=== PATIENT | female | born 1955 | race Caucasian/White ===

== ENCOUNTER → 2018-03-05 08:37 | Outpatient (CLI) | payer BC ==
[2016-04-18 01:06] VITALS: BMI 18.3
[~2018-03-05 08:37] MED LIST: ANORO ELLIPTA1 EACH INH; ARNUITY ELLIPTA; PREDNISONE10 MG PO; PRINIVIL20 MG PO; PROAIR HFA8.5 GM INH; RESTORIL15 MG PO; SINGULAIR10 MG PO; TAZTIA XT360 MG PO
== END | disposition home or self-care (01) ==
LOC: D.RT 08:37
DX: J44.9 Chronic obstructive pulmonary disease, unspecified (principal)

== ENCOUNTER 2018-04-12 20:34 | Inpatient (IN) | payer BC ==
[~2018-04-12] VITALS: Ht 152.4 cm; Wt 53.5 kg
--- NOTE | ~2018-04-12 | MORECARE ---
CASE MANAGEMENT DISCHARGE SUMMARY PATIENT: MITCHELL BURT UNIT: [id number] ADM DATE: 04/12/18 AGE: 62 : 54 SEX: F ROOM/BED: D.2226 AUTHOR: JOSÉ ANTONIO AUGUST PHYSICIAN: REFERRING PHYSICIAN: DEB SANCHEZ MD DATE OF SERVICE: 04/16/18 Discharge Plan Patient Name: MITCHELL BURT Facility: [facility]:[place] : 1955 Planned Disposition: Home Anticipated Discharge Date: Discharge Date: Expected LOS: Initial Reviewer: [email or web address] Initial Review Date: 04/15/2018 Generated: 04/16/18 4:06 pm Comments DCP- Discharge Planning Updated by [email or web address]: Shelby Mccarty on 04/16/18 2:[address] Received order for discharge. States her friend will be driving her home. Her potassium level is low and she needs to receive potassium prior to discharge. She states Dr. Sanchez thinks I'll do better at home because I'll walk more and be back on my routine medications. She is on 1L [place] oxygen, walk test ordered and I called RT and spoke to Jason. She declines home health, states she is going to have house calls see her. CM will continue to follow and assist with discharge planning/needs. DCP- Discharge Planning Updated by [email or web address]: Shelby Mccarty on 04/15/18 9:[address] Patient Name: MITCHELL BURT Admission Status: ER Accout number: [id number] Admission Date: 04-12-2018 : 1955 Admission Diagnosis: Attending: DEB SANCHEZ Current LOS: 3 Anticipated DC Date: Planned Disposition: Home Primary Insurance: [place] O Discharge Planning Comments: CM met with patient to discuss discharge planning, she is alone in the room. States she lives alone. States she is independent with all ADL's and IADL's. States she has a friend, Shital, that will take her home on discharge and assist with her care. She declines need for home health at this time. CM will continue to follow and assist with discharge planning/needs. Mastic Sprayer: Shelby Mccarty DCPIA - Discharge Planning Initial Assessment Updated by [email or web address]: Shelby Mccarty on 04/15/18 10:06 am * Is the patient Alert and Oriented? Yes * How many steps to enter\exit or inside your home? 0/flight * PCP Dr. Ribera * Pharmacy [facility] * Preadmission Environment Home Alone * ADLs Independent * Equipment Nebulizer * List name and contact numbers for known caregivers / representatives who currently or will assist patient after discharge: Shital Elliott [facility] - [phone] * Verbal permission to speak to the caregivers and representatives has been obtained from the patient. Yes * Community resources currently utilized None * Additional services required to return to the preadmission environment? No * Can the patient safely return to the preadmission environment? Yes * Has this patient been hospitalized within the prior 30 days at any hospital? No Last DP export: 04/15/18 9:10 Patient Name: MITCHELL BURT Page 83692 at 1506 All edits/amendments must be made on the electronic document DICTATION DATE: 04/16/181505 GIANT TIRE REPAIRER: IVY 04/16/18 150 RPT#: [id number] DC DATE: STATUS: ADM IN [facility] [address] [place] [address] END OF REPORT
--- NOTE | ~2018-04-12 | MORECARE ---
CASE MANAGEMENT DISCHARGE SUMMARY PATIENT: MITCHELL BURT UNIT: [id number] ADM DATE: 04/12/18 AGE: 62 : 53 SEX: F ROOM/BED: D.2226 AUTHOR: MATA,DOC PHYSICIAN: REFERRING PHYSICIAN: DEB SANCHEZ MD DATE OF SERVICE: 04/15/18 Discharge Plan Patient Name: MITCHELL BURT Facility: [facility]:[place] : 1955 Planned Disposition: Home Anticipated Discharge Date: Discharge Date: Expected LOS: Initial Reviewer: [email or web address] Initial Review Date: 04/15/2018 Generated: 04/15/18 11:10 am Comments DCP- Discharge Planning Updated by [email or web address]: Shelby Mccarty on 04/15/18 9:[address] Patient Name: MITCHELL BURT Admission Status: ER Accout number: [id number] Admission Date: 04-12-2018 : 1955 Admission Diagnosis: Attending: DEB SANCHEZ Current LOS: 3 Anticipated DC Date: Planned Disposition: Home Primary Insurance: [employer] O Discharge Planning Comments: CM met with patient to discuss discharge planning, she is alone in the room. States she lives alone. States she is independent with all ADL's and IADL's. States she has a friend, Shital, that will take her home on discharge and assist with her care. She declines need for home health at this time. CM will continue to follow and assist with discharge planning/needs. Business Segment Manager: Shelby Mccarty DCPIA - Discharge Planning Initial Assessment Updated by [email or web address]: Shelby Mccarty on 04/15/18 10:06 am * Is the patient Alert and Oriented? Yes * How many steps to enter\exit or inside your home? 0/flight * PCP Dr. Ribera * Pharmacy [facility] * Preadmission Environment Home Alone * ADLs Independent * Equipment Nebulizer * List name and contact numbers for known caregivers / representatives who currently or will assist patient after discharge: Shital Elliott - friend - [phone] * Verbal permission to speak to the caregivers and representatives has been obtained from the patient. Yes * Community resources currently utilized None * Additional services required to return to the preadmission environment? No * Can the patient safely return to the preadmission environment? Yes * Has this patient been hospitalized within the prior 30 days at any hospital? No Last DP export: 04/15/18 9:03 Patient Name: MITCHELL BURT Page [id number] at 1010 All edits/amendments must be made on the electronic document DICTATION DATE: 04/15/18 1010 DOOR LINER HELPER: IVY 04/15/18 1010 RPT#: [id number] DC DATE: STATUS: ADM IN [facility] [address] [place] [address] END OF REPORT
--- NOTE | ~2018-04-12 | DS ---
PATIENT:MITCHELL BURT :53 MEDICAL RECORD: [id number] DISCHARGE SUMMARY ADMISSION DATE: 04/12/18 DISCHARGE DATE: 04/18/18 PRINCIPAL DIAGNOSIS: Recurrent cecal volvulus. OTHER DIAGNOSES: Asthma, hypertension, constipation, history of , history of appendectomy, and history of neck surgeries times 3. PRINCIPAL PROCEDURE: Open right colectomy. HOSPITAL COURSE: The patient was admitted through the Emergency Room. She underwent the above operative procedure. Her pain was controlled postoperatively. Bowel function returned. Her diet was advanced. She is being dismissed home on hydrocodone as well as Colace. I will see her in the office in 2-3 weeks. The discharge instructions were given to the patient verbally by me. TRANSINT:[id number] Voice Confirmation ID: [id number] DOCUMENT ID: [id number] DEB SANCHEZ MD CC: DANTE DAY [id number] DICTATION DATE: 04/16/18 1354 RAG BOILER: 04/17/18 1122 DIS IN 04/18/18 [address] [id number] [place] [address]
--- NOTE | ~2018-04-12 | MORECARE ---
CASE MANAGEMENT DISCHARGE SUMMARY PATIENT: MITCHELL BURT UNIT: [id number] ADM DATE: 04/12/18 AGE: 62 : 54 SEX: F ROOM/BED: D.2226 AUTHOR: JOSÉ ANTONIO AUGUST PHYSICIAN: REFERRING PHYSICIAN: DEB SANCHEZ MD DATE OF SERVICE: 04/17/18 Discharge Plan Patient Name: MITCHELL BURT Facility: [facility]:[place] : 1955 Planned Disposition: Home Anticipated Discharge Date: Discharge Date: Expected LOS: Initial Reviewer: [id number] Initial Review Date: 04/15/2018 Generated: 04/17/18 8:02 pm Comments DCP- Discharge Planning Updated by [id number]: Nadia Dougherty on 04/17/18 5:[address] Patient Name: MITCHELL BURT Admission Status: ER Accout number: [id number] Admission Date: 04-12-2018 : 1955 Admission Diagnosis:VOLVULUS Attending: DEB SANCHEZ Current LOS: 5 Anticipated DC Date: Planned Disposition: Home Primary Insurance: [employer] O Discharge Planning Comments: CM FAXED DOCUMENTS TO [facility] AT FAX [phone]. I CALLED [facility] AT [phone] TO GET PATIENT SET UP WITH HOME O2 AND PORTABLE 02. [facility] IS AWARE THE PATIENT MAY DISCHARGE TOMORROW. RN OR CM MAY NEED TO FOLLOW UP WITH [facility] TOMORROW MORNING TO CHECK THE STATUS OF HER OXYGEN ORDER. CM WILL FOLLOW AND ASSIST NEEDED WITH DC PLANNING/NEEDS. Bicycle Courier: Nadia Dougherty DCP- Discharge Planning Updated by [email or web address]: Shelbymayi Mccarty on 04/16/18 2:[address] Received order for discharge. States her friend will be driving her home. Her potassium level is low and she needs to receive potassium prior to discharge. She states Dr. Sanchez thinks I'll do better at home because I'll walk more and be back on my routine medications. She is on 1L [place] oxygen, walk test ordered and I called RT and spoke to Jason. She declines home health, states she is going to have house calls see her. CM will continue to follow and assist with discharge planning/needs. DCP- Discharge Planning Updated by [email or web address]: Shelby Mccarty on 04/15/18 9:[address] Patient Name: MITCHELL BURT Admission Status: ER Accout number: [id number] Admission Date: 04-12-2018 : 1955 Admission Diagnosis: Attending: DEB SANCHEZ Current LOS: 3 Anticipated DC Date: Planned Disposition: Home [facility] [employer] [facility] Discharge Planning Comments: CM met with patient to discuss discharge planning, she is alone in the room. States she lives alone. States she is independent with all ADL's and IADL's. States she has a friend, Shital, that will take her home on discharge and assist with her care. She declines need for home health at this time. CM will continue to follow and assist with discharge planning/needs. Bicycle Courier: Shelby Mccarty DCPIA - Discharge Planning Initial Assessment Updated by [email or web address]: Shelby Mccarty on 04/15/18 10:06 am * Is the patient Alert and Oriented? Yes * How many steps to enter\exit or inside your home? 0/flight * PCP Dr. Ribera * Pharmacy [facility] * Preadmission Environment Home Alone * ADLs Independent * Equipment Nebulizer * List name and contact numbers for known caregivers / representatives who currently or will assist patient after discharge: Shital Elliott - friend - [phone] * Verbal permission to speak to the caregivers and representatives has been obtained from the patient. Yes * Community resources currently utilized None * Additional services required to return to the preadmission environment? No * Can the patient safely return to the preadmission environment? Yes * Has this patient been hospitalized within the prior 30 days at any hospital? No Last DP export: 04/17/18 5:50 Patient Name: MITCHELL BURT Page 29621 at 1902 All edits/amendments must be made on the electronic document DICTATION DATE: 04/17/181901 PSYCHOTHERAPIST SOCIAL WORKER: IVY 04/17/181901 RPT#: [id number] DC DATE: STATUS: ADM IN [facility] [address] [place] [address] END OF REPORT
--- NOTE | ~2018-04-12 | MORECARE ---
CASE MANAGEMENT DISCHARGE SUMMARY PATIENT: MITCHELL BURT UNIT: [id number] ADM DATE: 04/12/18 AGE: 62 : 53 SEX: F ROOM/BED: D.2226 AUTHOR: JOSÉ ANTONIO AUGUST PHYSICIAN: REFERRING PHYSICIAN: DEB SANCHEZ MD DATE OF SERVICE: 04/15/18 Discharge Plan Patient Name: MITCHELL BURT Facility: [facility]:[place] : 1955 Planned Disposition: Home Anticipated Discharge Date: Discharge Date: Expected LOS: Initial Reviewer: [email or web address] Initial Review Date: 04/15/2018 Generated: 04/15/18 11:03 am Patient Name: MITCHELL BURT Page 79087 at 1003 All edits/amendments must be made on the electronic document DICTATION DATE: 04/15/18 1003 TROLLEY WORKER: IVY 04/15/18 1003 RPT#: [id number] DC DATE: STATUS: ADM IN [facility] [address] [place] [address] END OF REPORT
--- NOTE | ~2018-04-12 | MORECARE ---
CASE MANAGEMENT DISCHARGE SUMMARY PATIENT: MITCHELL BURT UNIT: [id number] ADM DATE: 04/12/18 AGE: 62 : 53 SEX: F ROOM/BED: D.2226 AUTHOR: JOSÉ ANTONIO AUGUST PHYSICIAN: REFERRING PHYSICIAN: DEB SANCHEZ MD DATE OF SERVICE: 04/17/18 Discharge Plan Patient Name: MITCHELL BURT Facility: [facility]:[place] : 1955 Planned Disposition: Home Anticipated Discharge Date: Discharge Date: Expected LOS: Initial Reviewer: [email or web address] Initial Review Date: 04/15/2018 Generated: 04/17/18 7:50 pm Comments DCP- Discharge Planning Updated by [email or web address]: Shelby Mccarty on 04/16/18 2:[address] Received order for discharge. States her friend will be driving her home. Her potassium level is low and she needs to receive potassium prior to discharge. She states Dr. Sanchez thinks I'll do better at home because I'll walk more and be back on my routine medications. She is on 1L [place] oxygen, walk test ordered and I called RT and spoke to Jason. She declines home health, states she is going to have house calls see her. CM will continue to follow and assist with discharge planning/needs. DCP- Discharge Planning Updated by [email or web address]: Shelby Mccarty on 04/15/18 9:[address] Patient Name: MITCHELL BURT Admission Status: ER Accout number: [id number] Admission Date: 04-12-2018 : 1955 Admission Diagnosis: Attending: DEB SANCHEZ Current LOS: 3 Anticipated DC Date: Planned Disposition: Home Primary Insurance: [employer] O Discharge Planning Comments: CM met with patient to discuss discharge planning, she is alone in the room. States she lives alone. States she is independent with all ADL's and IADL's. States she has a friend, Shital, that will take her home on discharge and assist with her care. She declines need for home health at this time. CM will continue to follow and assist with discharge planning/needs. Scrap Shear Operator: Shelby Mccarty DCPIA - Discharge Planning Initial Assessment Updated by [email or web address]: Shelby Mccarty on 04/15/18 10:06 am * Is the patient Alert and Oriented? Yes * How many steps to enter\exit or inside your home? 0/flight * PCP Dr. Ribera * Pharmacy [facility] * Preadmission Environment Home Alone * ADLs Independent * Equipment Nebulizer * List name and contact numbers for known caregivers / representatives who currently or will assist patient after discharge: Shital Elliott [facility] - [phone] * Verbal permission to speak to the caregivers and representatives has been obtained from the patient. Yes * Community resources currently utilized None * Additional services required to return to the preadmission environment? No * Can the patient safely return to the preadmission environment? Yes * Has this patient been hospitalized within the prior 30 days at any hospital? No External Providers External Provider: VINIC[facility]vonne [facility] Contact Date: Service Request Date: Service Type: Resolution: Reviewer: Comments: Last DP export: 04/16/18 2:06 Patient Name: MITCHELL BURT Page 28597 at 1850 All edits/amendments must be made on the electronic document DICTATION DATE: 04/17/181848 SAFETY AND SKILL BASED PAY MANAGER: IVY 04/17/181848 RPT#: [id number] DC DATE: STATUS: ADM IN [facility] [address] [place] [address] END OF REPORT
--- NOTE | ~2018-04-12 | MORECARE ---
CASE MANAGEMENT DISCHARGE SUMMARY PATIENT: MITCHELL BURT UNIT: [id number] ADM DATE: 04/12/18 AGE: 62 : 53 SEX: F ROOM/BED: D.2226 AUTHOR: MATA,DOC PHYSICIAN: REFERRING PHYSICIAN: DEB SANCHEZ MD DATE OF SERVICE: 04/19/18 Discharge Plan Patient Name: MITCHELL BURT Facility: [facility]:[place] : 1955 Planned Disposition: Home Anticipated Discharge Date: Discharge Date: 04/18/2018 Expected LOS: Initial Reviewer: [email or web address] Initial Review Date: 04/15/2018 Generated: 04/19/18 3:46 pm Comments DCP- Discharge Planning Updated by [email or web address]: Evelyn Parker on 04/18/18 4:[address] LATE ENTRY Dang LEANDRO WITH [facility] DELIVERY PORTABLE OXYGEN TO PATIENTS BEDSIDE. HE WILL DELIVER STATIONARY UNIT TO PATIENT'S HOME. DCP- Discharge Planning Updated by [email or web address]: Nadia Dougherty on 04/17/18 6:[address] Patient Name: MITCHELL BURT Admission Status: ER Accout number: [id number] Admission Date: 04-12-2018 : 1955 Admission Diagnosis:VOLVULUS Attending: DEB SANCHEZ Current LOS: 5 Anticipated DC Date: Planned Disposition: Home Primary Insurance: [employer] [facility] Discharge Planning Comments: [facility] AT FAX [phone]. I CALLED [facility] AT [phone] TO GET PATIENT SET UP WITH HOME O2 AND PORTABLE 02. [facility] IS AWARE THE PATIENT MAY DISCHARGE TOMORROW. RN OR CM MAY NEED TO FOLLOW UP WITH [facility] TOMORROW MORNING TO CHECK THE STATUS OF HER OXYGEN ORDER. CM WILL FOLLOW AND ASSIST NEEDED WITH DC PLANNING/NEEDS. Piano Tuner: Nadia Dougherty Appended by Nadia Dougherty on 04/17/2018 19:23 NATURAL RESOURCES TECHNICIAN: SPOKE WITH LEANDRO FROM [facility], HE STATED HE WILL DELIVER PORTABLE O2 TO PATIENTS ROOM TOMORROW AROUND NOON. THEN WILL SET UP HOME O2 FOR HER. DCP- Discharge Planning Updated by [email or web address]: Shelby Mccarty on 04/16/18 2:[address] Received order for discharge. States her friend will be driving her home. Her potassium level is low and she needs to receive potassium prior to discharge. She states Dr. Sanchez thinks I'll do better at home because I'll walk more and be back on my routine medications. She is on 1L [place] oxygen, walk test ordered and I called RT and spoke to Jason. She declines home health, states she is going to have house calls see her. CM will continue to follow and assist with discharge planning/needs. DCP- Discharge Planning Updated by [email or web address]: Shelby Mccarty on 04/15/18 9:[address] Patient Name: MITCHELL BURT Admission Status: ER Accout number: [id number] Admission Date: 04-12-2018 : 1955 Admission Diagnosis: Attending: DEB SANCHEZ Current LOS: 3 Anticipated DC Date: Planned Disposition: Home Primary Insurance: [employer] [facility] Discharge Planning Comments: CM met with patient to discuss discharge planning, she is alone in the room. States she lives alone. States she is independent with all ADL's and IADL's. States she has a friend, Shital, that will take her home on discharge and assist with her care. She declines need for home health at this time. CM will continue to follow and assist with discharge planning/needs. Piano Tuner: Shelby Dormanlela DCPIA - Discharge Planning Initial Assessment Updated by [email or web address]: Shelby Mccarty on 04/15/18 10:06 am * Is the patient Alert and Oriented? Yes * How many steps to enter\exit or inside your home? 0/flight * PCP Dr. Ribera * Pharmacy [facility] on [facility] * Preadmission Environment Home Alone * ADLs Independent * Equipment Nebulizer * List name and contact numbers for known caregivers / representatives who currently or will assist patient after discharge: Shital Elliott - friend - [phone] * Verbal permission to speak to the caregivers and representatives has been obtained from the patient. Yes * Community resources currently utilized None * Additional services required to return to the preadmission environment? No * Can the patient safely return to the preadmission environment? Yes * Has this patient been hospitalized within the prior 30 days at any hospital? No Last DP export: 04/18/18 4:31 Patient Name: MITCHELL BURT Page 99518 at 1446 All edits/amendments must be made on the electronic document DICTATION DATE: 04/19/181444 GANG HEMSTITCHING MACHINE OPERATOR: IVY 04/19/181444 RPT#: [id number] DC DATE:04/18/18 STATUS: DIS IN [facility] [address] [place] [address] END OF REPORT
--- NOTE | ~2018-04-12 | MORECARE ---
CASE MANAGEMENT DISCHARGE SUMMARY PATIENT: MITCHELL BURT UNIT: [id number] ADM DATE: 04/12/18 AGE: 62 : 53 SEX: F ROOM/BED: D.2226 AUTHOR: MATA,DOC PHYSICIAN: REFERRING PHYSICIAN: DEB SANCHEZ MD DATE OF SERVICE: 04/18/18 Discharge Plan Patient Name: MITCHELL BURT Facility: [facility]:[place] : 1955 Planned Disposition: Home Anticipated Discharge Date: Discharge Date: 04/18/2018 Expected LOS: Initial Reviewer: [id number] Initial Review Date: 04/15/2018 Generated: 04/18/18 6:31 pm Comments DCP- Discharge Planning Updated by [email or web address]: Evelyn Parker on 04/18/18 4:[address] LATE ENTRY Dang REEVES WITH [facility] DELIVERY PORTABLE OXYGEN TO PATIENTS BEDSIDE. HE WILL DELIVER STATIONARY UNIT TO PATIENT'S HOME. DCP- Discharge Planning Updated by [email or web address]: Nadia Dougherty on 04/17/18 6:[address] Patient Name: MITCHELL BURT Admission Status: ER Accout number: [id number] Admission Date: 04-12-2018 : 1955 Admission Diagnosis:VOLVULUS Attending: DEB SANCHEZ Current LOS: 5 Anticipated DC Date: Planned Disposition: Home Primary Insurance: [employer] [facility] Discharge Planning Comments: CM FAXED DOCUMENTS TO [facility] AT FAX [phone]. [facility] AT [phone] TO GET PATIENT SET UP WITH HOME O2 AND PORTABLE 02. [facility] MAY DISCHARGE TOMORROW. RN OR CM MAY NEED TO FO[facility] MORN[facility] TO CHECK THE STATUS OF HER OXYGEN ORDER. CM WILL FOLLOW AND ASSIST NEEDED WITH DC PLANNING/NEEDS. Diagram Clerk: Nadia Dougherty Appended by Nadia Dougherty on 04/17/2018 19:23 AIRCRAFT SYSTEMS REPAIRER: SPOKE WITH LEANDRO FROM [facility], HE STATED HE WILL DELIVER PORTABLE O2 TO PATIENTS ROOM TOMORROW AROUND NOON. THEN WILL SET UP HOME O2 FOR HER. DCP- Discharge Planning Updated by [email or web address]: Shelby Mccarty on 04/16/18 2:[address] Received order for discharge. States her friend will be driving her home. Her potassium level is low and she needs to receive potassium prior to discharge. She states Dr. Sanchez thinks I'll do better at home because I'll walk more and be back on my routine medications. She is on 1L [place] oxygen, walk test ordered and I called RT and spoke to Jason. She declines home health, states she is going to have house calls see her. CM will continue to follow and assist with discharge planning/needs. DCP- Discharge Planning Updated by [email or web address]: Shelby Mccarty on 04/15/18 9:[address] Patient Name: MITCHELL BURT Admission Status: ER Accout number: [id number] Admission Date: 04-12-2018 : 1955 Admission Diagnosis: Attending: DEB SANCHEZ Current LOS: 3 Anticipated DC Date: Planned Disposition: Home Primary Insurance: [employer] [facility] Discharge Planning Comments: CM met with patient to discuss discharge planning, she is alone in the room. States she lives alone. States she is independent with all ADL's and IADL's. States she has a friend, Shital, that will take her home on discharge and assist with her care. She declines need for home health at this time. CM will continue to follow and assist with discharge planning/needs. Diagram Clerk: Shelby Dormanlela DCPIA - Discharge Planning Initial Assessment Updated by [email or web address]: Shelby Mccarty on 04/15/18 10:06 am * Is the patient Alert and Oriented? Yes * How many steps to enter\exit or inside your home? 0/flight * PCP Dr. Ribera * Pharmacy [facility] on [facility] * Preadmission Environment Home Alone * ADLs Independent * Equipment Nebulizer * List name and contact numbers for known caregivers / representatives who currently or will assist patient after discharge: Shital Elliott - friend - [phone] * Verbal permission to speak to the caregivers and representatives has been obtained from the patient. Yes * Community resources currently utilized None * Additional services required to return to the preadmission environment? No * Can the patient safely return to the preadmission environment? Yes * Has this patient been hospitalized within the prior 30 days at any hospital? No Last DP export: 04/17/18 6:27 Patient Name: MITCHELL BURT Page 77599 at 1731 All edits/amendments must be made on the electronic document DICTATION DATE: 04/18/181729 FISH RECEIVER: IVY 04/18/181729 RPT#: [id number] DC DATE:04/18/18 STATUS: DIS IN [facility] [address] [place] [address] END OF REPORT
--- NOTE | ~2018-04-12 | CN ---
PATIENT NAME:MITCHELL BURT MEDICAL RECORD: [id number] : 53 LOCATION:D.[facility] ADMIT DATE: 04/12/18 ACCOUNT: [id number] CONSULTING PHYSICIAN: SARAH MCKEON MD REFERRING PHYSICIAN: DEB SANCHEZ MD DATE OF CONSULTATION: 04/16/2018 REQUESTING PHYSICIAN: Andrea Agiuar MD REASON FOR CONSULTATION: Hypoxia. HISTORY OF PRESENT ILLNESS: Ms. Burt is a 62-year-old female, very well known to me. The patient has a history of COPD. She is on Anoro at home. The patient was admitted on 04/12/2018 with abdominal pain. On , she underwent laparotomy and she has partial colectomy and the volvulus was released by Dr. Sanchez. Now today, the patient was ready to discharge, but her pulse ox was in lower 80s on room air. According to the patient, she cannot take a deep breath because of the abdominal pain. Denies any chest pain. There is no fever or any chills. No night sweats. REVIEW OF SYSTEMS: As in history of present illness. PAST MEDICAL HISTORY: 1. COPD. 2. Hypertension. 3. History of asthma. PAST SURGICAL HISTORY: 1. Appendectomy. 2. . 3. Neck surgery times 3. ALLERGIES: SHE IS ALLERGIC TO CEPHALOSPORIN AND PENICILLIN. MEDICATIONS: On Azendootech is reviewed. PERSONAL AND SOCIAL HISTORY: The patient is an ex-smoker. She is a nondrinker. FAMILY HISTORY: Significant for parent cancer. PHYSICAL EXAMINATION: GENERAL: Now, the patient is lying comfortably, but she is not in acute distress. VITAL SIGNS: The blood pressure is 152/80, pulse is 86, respirations 17, temperature 98.8, SpO2 is 93% on 2 liters nasal cannula. HEENT: Conjunctivae are pink. Sclerae are not icteric. NECK: Supple, no JVD. CHEST: There is a left basal crackle. No wheezing. HEART: Rhythm regular, normal sound, no murmur. ABDOMEN: Soft, bowel sounds present. No hepatosplenomegaly. RECTAL: Deferred. EXTREMITIES: No cyanosis, no clubbing, no pedal edema. CENTRAL NERVOUS SYSTEM: The patient is awake and alert. There are no obvious cranial abnormality. The gait was not tested. CONSULT REPORT [id number] MITCHELL BURT CHEST RADIOGRAPH: There is left lower lobe infiltrate. OTHER LABORATORY DATA: CBC: The WBC is 13.7, improved to 9.9. Chemistry: Sodium 137, potassium is 2.4, BUN is 3, creatinine 0.4. IMPRESSION: 1. Acute hypoxic respiratory failure, rule out pulmonary thromboembolism. 2. Chronic obstructive pulmonary disease acute exacerbation. 3. Pneumonia, left lower lobe, most likely hospital-acquired pneumonia. 4. Status post laparotomy, partial colectomy. 5. Leukocytosis that is resolving. 6. Hypokalemia. RECOMMENDATION: 1. We will start on meropenem and vancomycin IV. 2. Lovenox subQ noted. 3. Check the CTA of the chest. Check the ultrasound of the lower extremity. 4. Incentive spirometry and Acapella q.2. hourly when the patient is awake. 5. Start on albuterol-ipratropium nebulizer. 6. Start on Brovana-budesonide nebulizer. 7. Stop Anoro. 8. Follow up labs and chest radiograph. Dr. Aguiar, thank you for involving me in the care of Ms. Burt. TRANSINT:[id number] Voice Confirmation ID: [id number] DOCUMENT ID: [id number] SARAH MCKEON MD CC: [id number] DICTATION DATE: 04/16/181703 GLASS MELT OPERATOR: 04/17/18 0322 ADM IN [facility] [address] [id number]
--- NOTE | ~2018-04-12 | MORECARE ---
CASE MANAGEMENT DISCHARGE SUMMARY PATIENT: MITCHELL BURT UNIT: [id number] ADM DATE: 04/12/18 AGE: 62 : [birth year] SEX: F ROOM/BED: D.2226 AUTHOR: MATADOC PHYSICIAN: REFERRING PHYSICIAN: DEB SANCHEZ MD DATE OF SERVICE: 04/17/18 Discharge Plan Patient Name: MITCHELL BURT Facility: [facility]:[place] : 1955 Planned Disposition: Home Anticipated Discharge Date: Discharge Date: Expected LOS: Initial Reviewer: [email or web address] Initial Review Date: 04/15/2018 Generated: 04/17/18 8:27 pm Comments DCP- Discharge Planning Updated by [email or web address]: Nadia Dougherty on 04/17/18 6:[address] Patient Name: MITCHELL BURT Admission Status: ER Accout number: [id number] Admission Date: 04-12-2018 : 1955 Admission Diagnosis:VOLVULUS Attending: DEB SANCHEZ Current LOS: 5 Anticipated DC Date: Planned Disposition: Home Primary Insurance: [employer] O Discharge Planning Comments: CM FAXED DOCUMENTS TO [facility] AT FAX [phone]. [facility] AT [phone] TO GET PATIENT SET UP WITH HOME O2 AND PORTABLE 02. [facility] IS AWARE THE PATIENT MAY DISCHARGE TOMORROW. RN OR CM MAY NEED TO FOLLOW UP WITH [facility] TOMORROW MORNING TO CHECK THE STATUS OF HER OXYGEN ORDER. CM WILL FOLLOW AND ASSIST NEEDED WITH DC PLANNING/NEEDS. Social Research Assistant: Nadia Dougherty Appended by Nadia Dougherty on 04/17/2018 19:23 MODEL MAKER SCALE: SPOKE WITH LEANDRO FROM [facility], HE STATED HE WILL DELIVER PORTABLE O2 TO PATIENTS ROOM TOMORROW AROUND NOON. THEN WILL SET UP HOME O2 FOR HER. DCP- Discharge Planning Updated by [id number]: Shelby Mccarty on 04/16/18 2:[address] Received order for discharge. States her friend will be driving her home. Her potassium level is low and she needs to receive potassium prior to discharge. She states Dr. Sanchez thinks I'll do better at home because I'll walk more and be back on my routine medications. She is on 1L [place] oxygen, walk test ordered and I called [facility] and spoke to Jason. She declines home health, states she is going to have house calls see her. CM will continue to follow and assist with discharge planning/needs. DCP- Discharge Planning Updated by [id number]: Shelby Mccarty on 04/15/18 9:[address] Patient Name: MITCHELL BURT Admission Status: ER Accout number: [id number] Admission Date: 04-12-2018 : 1955 Admission Diagnosis: Attending: DEB SANCHEZ Current LOS: 3 Anticipated DC Date: Planned Disposition: Home Primary Insurance: [employer] O Discharge Planning Comments: CM met with patient to discuss discharge planning, she is alone in the room. States she lives alone. States she is independent with all ADL's and IADL's. States she has a friend, Shital, that will take her home on discharge and assist with her care. She declines need for home health at this time. CM will continue to follow and assist with discharge planning/needs. Social Research Assistant: Shelby Dormanlela DCPIA - Discharge Planning Initial Assessment Updated by [id number]: Shelby Mccarty on 04/15/18 10:06 am * Is the patient Alert and Oriented? Yes * How many steps to enter\exit or inside your home? 0/flight * PCP Dr. Ribera * Pharmacy [facility] on [facility] * Preadmission Environment Home Alone * ADLs Independent * Equipment Nebulizer * List name and contact numbers for known caregivers / representatives who currently or will assist patient after discharge: Shital Elliott - friend - [phone] * Verbal permission to speak to the caregivers and representatives has been obtained from the patient. Yes * Community resources currently utilized None * Additional services required to return to the preadmission environment? No * Can the patient safely return to the preadmission environment? Yes * Has this patient been hospitalized within the prior 30 days at any hospital? No Last DP export: 04/17/18 6:02 Patient Name: MITCHELL BURT Page [id number] at 1927 All edits/amendments must be made on the electronic document DICTATION DATE: 04/17/181925 TRUCK DRIVER RUBBISH COLLECTOR: DM 04/17/181925 RPT#: [id number] DC DATE: STATUS: ADM IN [facility] [address] [place] [address] END OF REPORT
--- NOTE | ~2018-04-12 | OP ---
PATIENT NAME: MITCHELL BURT MEDICAL RECORD: [id number] :53 LOCATION:[facility] D.2312 ADMISSION DATE:04/12/18 SURGEON: ETHAN SANCHEZ MD DATE OF OPERATION: 04/13/2018 PREOPERATIVE DIAGNOSIS: Cecal volvulus, recurrent. POSTOPERATIVE DIAGNOSIS: Cecal volvulus, recurrent, with incarcerated incisional hernia. PROCEDURES: 1. Right hemicolectomy. 2. Incisional hernia repair without mesh. SURGEON: Ethan Sanchez MD HEAD BATCHER: None. BLOOD LOSS: Less than 100 cc. ANESTHESIA: General. COMPLICATIONS: None. The risks, possible complications, and alternatives to the procedure were explained to the patient. She elects to proceed. Preoperatively, an epidural catheter was placed for postoperative analgesia. OPERATIVE COURSE: The patient was conveyed to the operating room electively on 04/13/2018. General anesthesia was induced by the anesthesia staff. The abdomen was sterilely prepped and draped. A midline incision was accomplished. I entered the peritoneal cavity sharply. Ascites was present. This was aspirated. I noted no purulence. No necrotic bowel. The cecum was indeed torsed and was in the left upper quadrant and was edematous. I incised along the right white line of Toldt. I then folded the rest of the right colon medially. I partially kocherized the duodenum. I chose the proximal extent of my resection to be the distal ileum. I created a window in the mesentery here and stapled across the ileum with a KRISTEN-75 stapler. I chose the distal extent of my resection to be the mid transverse colon. A window was created in the mesocolon here and I stapled across the colon with the KRISTEN-75 stapler. The interposed mesentery was taken down with the Super Jaw EnSeal device. I placed the ileum and the transverse colon into apposition side by side. A small enterotomy and small colotomy were accomplished. Anvils of the KRISTEN-75 stapler were advanced and then fired. The resulting enterocolonic defect was closed with a single firing of the TA-60 stapler. I then oversewed a portion of this TA-60 staple line. I closed the mesenteric rent with a running locking #1 Vicryl. I irrigated and aspirated. There was no bleeding. I ran the small bowel from the ligament of Treitz to the anastomosis twice and there was no evidence of a bowel injury. I ensured that the small bowel was not twisted on its mesentery. I noted an incisional hernia. I excised the hernia sac. OPERATIVE REPORT [id number] MITCHELL BURT The midline fascia was closed with running looped #1 PDS in a horizontal mattress fashion. This was done from the cephalad and caudad direction. The incisional hernia was repaired with a #1 Surgidac suture. The subdermis was approximated with interrupted 3-0 Vicryls. The skin was approximated with a running intracuticular 3-0 Vicryl. Sterile dressings were applied. The patient was then extubated and conveyed to the postanesthesia care unit, where she was in stable condition. TRANSINT:[id number] Voice Confirmation ID: [id number] DOCUMENT ID: [id number] ETHAN SANCHEZ MD at 1853 CC: [id number] DICTATION DATE: 04/13/181755 PURCHASE PRICE ANALYST: 04/13/181920 ADM IN [facility] [address] [place] [address]
[2018-04-12 21:27] LABS: BASOPHILS 0.2 % (0-2); EOSINOPHILS 0.4 % (0-7); HEMATOCRIT 43.3 % (36.0-48.0); HEMOGLOBIN 14.8 g/dL (12-16); IMMATURE GRANULOCYTES 0.2 % (0-5); LYMPHOCYTES 19.7 % (15-50); MCH 32.9 pg (26.0-34.0); MCHC 34.2 g/dL (31.0-37.0); MCV 96.2 fL (80.0-100.0); MONOCYTES 9.2 % (2-11); NEUTROPHILS 70.3 % (40-80); RDW 12.9 % (11.5-14.5); WBC 14.9 10x3/uL (4.8-10.8)
[2018-04-12 21:46] LABS: ALBUMIN 4.4 g/dL (3.4-5.0); ALKALINE PHOSPHATASE 56 U/L (46-116); ALT (SGPT) 19 U/L (10-68); BILIRUBIN - TOTAL 0.38 mg/dL (0.2-1.3); CALC OSMOLALITY 271 mosm/kg (275-300); CALCIUM 10.1 mg/dL (8.5-10.1); CARBON DIOXIDE 31.5 mmol/L (21.0-32.0); CHLORIDE - SERUM 94 mmol/L (98-107); CREATININE - SERUM 0.5 mg/dL (0.6-1.3); GLUCOSE 137 mg/dL (74-106); POTASSIUM - SERUM 3.5 mmol/L (3.5-5.1); PROTEIN - SERUM 8.3 g/dL (6.4-8.2); SODIUM 136 mmol/L (136-145); UREA NITROGEN 8 mg/dL (7-18); eGFR NON AFRICAN AMERICAN > 90 mL/min (90-120)
[2018-04-12 21:50] LABS: AMYLASE - SERUM 25 U/L (25-115); LIPASE 91 U/L (73-393); PLATELET COUNT 253 10x3/uL (130-400); TROPONIN-I < 0.017 ng/mL (0.000-0.060)
[2018-04-12 22:59] LABS: APPEARANCE CLEAR (CLEAR); BILIRUBIN NEGATIVE (NEGATIVE); COLOR YELLOW (YELLOW); GLUCOSE NEGATIVE (NEGATIVE); KETONE NEGATIVE (NEGATIVE); NITRITE NEGATIVE (NEGATIVE); PROTEIN NEGATIVE (NEGATIVE); UROBILINOGEN NORMAL (NORMAL)
[2018-04-13] VITALS (16 sets, daily range): BP systolic 86–159; BP diastolic 60–102; BMI 18.2
[2018-04-13 14:23] LABS: HEMATOCRIT 40.1 % (36.0-48.0); HEMOGLOBIN 13.3 g/dL (12-16)
[2018-04-14] VITALS (17 sets, daily range): BP systolic 150–178; BP diastolic 80–121; Ht 152.4 cm; Wt 53.5 kg
[2018-04-14 11:08] LABS: BASOPHILS 0.1 % (0-2); EOSINOPHILS 0 % (0-7); HEMATOCRIT 36.9 % (36.0-48.0); HEMOGLOBIN 11.8 g/dL (12-16); IMMATURE GRANULOCYTES 0.3 % (0-5); LYMPHOCYTES 10.7 % (15-50); MCH 32.2 pg (26.0-34.0); MEAN PLATELET VOLUME 10.9 fL (7.4-10.4); MONOCYTES 9.1 % (2-11); NEUTROPHILS 79.8 % (40-80); RBC 3.67 10x6/uL (4.00-5.40); RDW 13.1 % (11.5-14.5); WBC 13.7 10x3/uL (4.8-10.8)
[2018-04-14 11:15] LABS: CALC OSMOLALITY 280 mosm/kg (275-300); CARBON DIOXIDE 26.2 mmol/L (21.0-32.0); CHLORIDE - SERUM 107 mmol/L (98-107); CREATININE - SERUM 0.5 mg/dL (0.6-1.3); POTASSIUM - SERUM 3.9 mmol/L (3.5-5.1); SODIUM 142 mmol/L (136-145); UREA NITROGEN 9 mg/dL (7-18); eGFR NON AFRICAN AMERICAN > 90 mL/min (90-120)
[2018-04-14 11:18] LABS: GLUCOSE 82 mg/dL (74-106)
[2018-04-14 11:25] LABS: MCV 100.5 fL (80.0-100.0); PLATELET COUNT 177 10x3/uL (130-400)
[2018-04-15] VITALS: BP 183/88
[2018-04-15 04:00] VITALS: BP 160/95
[2018-04-15 09:00] VITALS: BP 166/82
[2018-04-15 12:00] VITALS: BP 179/96
[2018-04-15 16:00] VITALS: BP 170/93
[2018-04-15 20:00] VITALS: BP 164/81
[2018-04-16 04:00] VITALS: BP 144/91
[2018-04-16 05:03] LABS: BASOPHILS 0.2 % (0-2); EOSINOPHILS 1.6 % (0-7); HEMATOCRIT 36.3 % (36.0-48.0); HEMOGLOBIN 11.9 g/dL (12-16); IMMATURE GRANULOCYTES 0.1 % (0-5); LYMPHOCYTES 18.2 % (15-50); MCH 32.1 pg (26.0-34.0); MCHC 32.8 g/dL (31.0-37.0); MEAN PLATELET VOLUME 11.1 fL (7.4-10.4); MONOCYTES 9.6 % (2-11); NEUTROPHILS 70.3 % (40-80); PLATELET COUNT 194 10x3/uL (130-400); RBC 3.71 10x6/uL (4.00-5.40); RDW 12.7 % (11.5-14.5)
[2018-04-16 05:04] LABS: MCV 97.8 fL (80.0-100.0); WBC 9.9 10x3/uL (4.8-10.8)
[2018-04-16 05:31] LABS: ALBUMIN 2.4 g/dL (3.4-5.0); ALKALINE PHOSPHATASE 43 U/L (46-116); ALT (SGPT) 19 U/L (10-68); BILIRUBIN - TOTAL 0.53 mg/dL (0.2-1.3); CALCIUM 8.3 mg/dL (8.5-10.1); CREATININE - SERUM 0.4 mg/dL (0.6-1.3); GLUCOSE 89 mg/dL (74-106); PROTEIN - SERUM 5.9 g/dL (6.4-8.2); eGFR NON AFRICAN AMERICAN > 90 mL/min (90-120)
[2018-04-16 05:34] LABS: CARBON DIOXIDE 33.4 mmol/L (21.0-32.0); UREA NITROGEN 3 mg/dL (7-18)
[2018-04-16 05:39] LABS: CALC OSMOLALITY 269 mosm/kg (275-300); CHLORIDE - SERUM 99 mmol/L (98-107); SODIUM 137 mmol/L (136-145)
[2018-04-16 05:40] LABS: POTASSIUM - SERUM 2.8 mmol/L (3.5-5.1)
[2018-04-16 08:51] VITALS: BP 187/104
[2018-04-16] MEDS ORDERED: COLACE100 MG PO (14:37)
[2018-04-16] MEDS ORDERED: HYDROCODON-ACE1 EAC7 PO (14:38)
[2018-04-16 14:48] LABS: MAGNESIUM - SERUM 1.5 mg/dL (1.8-2.4)
[2018-04-16 14:50] LABS: PHOSPHOROUS 1.5 mg/dL (2.5-4.9); POTASSIUM - SERUM 2.4 mmol/L (3.5-5.1)
[2018-04-16 15:27] VITALS: BP 152/80
[2018-04-16 20:28] VITALS: BP 167/85
[2018-04-16 23:54] VITALS: BP 143/79
[2018-04-17 04:32] VITALS: BP 155/89
[2018-04-17 05:57] LABS: BASOPHILS 0.3 % (0-2); EOSINOPHILS 2.1 % (0-7); HEMOGLOBIN 11.5 g/dL (12-16); IMMATURE GRANULOCYTES 0.1 % (0-5); LYMPHOCYTES 22.5 % (15-50); MCH 31.4 pg (26.0-34.0); MCHC 31.9 g/dL (31.0-37.0); MCV 98.4 fL (80.0-100.0); PLATELET COUNT 231 10x3/uL (130-400); RBC 3.66 10x6/uL (4.00-5.40); RDW 12.7 % (11.5-14.5); WBC 7.3 10x3/uL (4.8-10.8)
[2018-04-17 06:30] LABS: ALBUMIN 2.6 g/dL (3.4-5.0); ALKALINE PHOSPHATASE 37 U/L (46-116); ALT (SGPT) 20 U/L (10-68); BILIRUBIN - TOTAL 0.48 mg/dL (0.2-1.3); CALC OSMOLALITY 274 mosm/kg (275-300); CALCIUM 8.4 mg/dL (8.5-10.1); CARBON DIOXIDE 39.6 mmol/L (21.0-32.0); CHLORIDE - SERUM 100 mmol/L (98-107); CREATININE - SERUM 0.4 mg/dL (0.6-1.3); GLUCOSE 101 mg/dL (74-106); POTASSIUM - SERUM 3.7 mmol/L (3.5-5.1); PROTEIN - SERUM 6.1 g/dL (6.4-8.2); SODIUM 139 mmol/L (136-145); UREA NITROGEN 3 mg/dL (7-18); eGFR NON AFRICAN AMERICAN > 90 mL/min (90-120)
[2018-04-17 09:00] VITALS: BP 174/94
[2018-04-17 09:16] LABS: MAGNESIUM - SERUM 1.5 mg/dL (1.8-2.4)
[2018-04-17 09:19] LABS: PHOSPHOROUS 2.2 mg/dL (2.5-4.9)
[2018-04-17 12:30] VITALS: BP 151/91
[2018-04-17 16:17] VITALS: BP 147/88
[2018-04-17 20:27] VITALS: BP 148/89
[2018-04-18 05:55] LABS: BASOPHILS 0 % (0-2); EOSINOPHILS 0 % (0-7); HEMATOCRIT 39.6 % (36.0-48.0); MCH 32.2 pg (26.0-34.0); MCHC 32.8 g/dL (31.0-37.0); MEAN PLATELET VOLUME 10.7 fL (7.4-10.4); MONOCYTES 1.5 % (2-11); NEUTROPHILS 89.5 % (40-80); PLATELET COUNT 272 10x3/uL (130-400); RBC 4.04 10x6/uL (4.00-5.40); RDW 12.6 % (11.5-14.5)
[2018-04-18 06:10] LABS: ALBUMIN 3.1 g/dL (3.4-5.0); ALKALINE PHOSPHATASE 45 U/L (46-116); ALT (SGPT) 21 U/L (10-68); BILIRUBIN - TOTAL 0.62 mg/dL (0.2-1.3); CALCIUM 8.9 mg/dL (8.5-10.1); CARBON DIOXIDE 35.5 mmol/L (21.0-32.0); CHLORIDE - SERUM 91 mmol/L (98-107); CREATININE - SERUM 0.5 mg/dL (0.6-1.3); POTASSIUM - SERUM 3.8 mmol/L (3.5-5.1); PROTEIN - SERUM 7.1 g/dL (6.4-8.2); SODIUM 135 mmol/L (136-145); eGFR NON AFRICAN AMERICAN > 90 mL/min (90-120)
[2018-04-18 06:11] LABS: CALC OSMOLALITY 272 mosm/kg (275-300); GLUCOSE 173 mg/dL (74-106); UREA NITROGEN 9 mg/dL (7-18)
[2018-04-18 07:29] LABS: MAGNESIUM - SERUM 1.8 mg/dL (1.8-2.4); PHOSPHOROUS 3.5 mg/dL (2.5-4.9)
[2018-04-18 09:31] VITALS: BP 167/95
[2018-04-18] MEDS ORDERED: LEVAQUIN750 MG PO (11:08)
[2018-04-18] MEDS ORDERED: PREDNISONE10 MG PO (11:10)
[2018-04-18 12:00] VITALS: BP 172/103
== END 2018-04-18 13:51 | disposition home or self-care (01) | DRG 330 ==
LOC: D.ER 20:34 → D.MS 23:36 → D.ICU 23:36 → D.MS 04-15 00:32 → D.SDCHOLD 04-17 16:16 → D.MS 04-17 16:18
PROVIDERS: Emergency Medicine; Family Medicine; Surgery
PROC: 0DTF0ZZ Resection of Right Large Intestine, Open Approach (ICD-10-PCS; principal; 2018-04-13 09:00)
PROC: 0WUF0JZ Supplement Abdominal Wall with Synthetic Substitute, Open Approach (ICD-10-PCS; 2018-04-13 09:00)
DX: K56.2 Volvulus (principal); K43.0 Incisional hernia with obstruction, without gangrene; I10 Essential (primary) hypertension; J44.9 Chronic obstructive pulmonary disease, unspecified; E86.0 Dehydration; I95.81 Postprocedural hypotension

== ENCOUNTER → 2020-09-03 10:45 | Outpatient (CLI) | payer MEDICARE, BC ==
[2018-04-14 10:08] VITALS: BMI 23.0
[~2020-09-03 10:45] MED LIST changes: +COLACE100 MG PO; +HYDROCODON-ACE1 EAC7 PO; +LEVAQUIN750 MG PO
== END | disposition home or self-care (01) ==
LOC: D.RT 07-20 10:00
PROVIDERS: ATTEND Internal Medicine Pulmonary Disease
DX: J44.9 Chronic obstructive pulmonary disease, unspecified (principal); Z11.52 Encounter for screening for COVID-19

== ENCOUNTER → 2020-10-10 10:01 | Outpatient (CLI) | payer MEDICARE, BC ==
[2018-04-14 10:08] VITALS: BMI 23.0
== END | disposition home or self-care (01) ==
LOC: D.RT 09:45
PROVIDERS: ATTEND Internal Medicine Pulmonary Disease
DX: J44.9 Chronic obstructive pulmonary disease, unspecified (principal)